=== PATIENT | male | born 1940 | race Caucasian/White ===

== ENCOUNTER 2017-05-25 17:46 | Inpatient (IN) | payer MEDICARE, BC ==
[~2017-05-25] VITALS: Ht 185.4 cm; Wt 81.0 kg
[2017-05-25] VITALS (8 sets, daily range): BP systolic 87–124; BP diastolic 52–68; PULSE 89–170; RESP 15–20; TEMP 98.5–99.2; O2SAT 94–97
[~2017-05-25 17:46] MED LIST: ASPI81TA21 PO; CARD120C4 PO; CENTTAB9 PO; DOXY100T PO; FLON0.053; JANU50TA PO; LIPI20TA PO; MAGN400 PO; POTA80TA PO; PREV30CA36 PO; RIVA20 PO; VIAG100T PO; VITA-13 PO; VITA100017 PO
[2017-05-25] MEDS ORDERED: DILTIAZEM HCL 25 MG/5 ML VIAL ONE (18:33)
[2017-05-25] MEDS ORDERED: SODIUM CHLOR 0.9% 1000 ML INJ 1,000 ML IV ONE (18:35)
[2017-05-25] MEDS ORDERED: PIPERACIL-TAZO 4.5 GM PREMIX 100 ML IV STA (18:35)
[2017-05-25] MEDS ORDERED: SODIUM CHLORIDE 0.9% FLUSH 5 ML FLUSH IV FLUSH PRN (18:45)
[2017-05-25] MEDS ORDERED: DILTIAZEM HCL 25 MG/5 ML VIAL IV PUSH ONE (18:45)
--- NOTE | 2017-05-25 18:45 | PD ---
HPI Chief Complaint: General Weakness Time Seen by Provider: 18:35 Travel History International Travel<30 days: No Contact w/Intl Traveler<30days: No Traveled to known affect area: No History of Present Illness HPI 76-year-old male with history of paroxysmal A. fib, presents to the ER today brought in by his because he has been feeling weak for the last few days, was seen by his physician today and was found to be in A. fib with RVR at a rate of 130 bpm and was sent to the ER for further evaluation. His states that he has been sick for several days and has been having fevers of 102 at home. He has been coughing and having some mild shortness of breath but otherwise has had no other complaints. He states he feels some palpitations but denies any vomiting, diarrhea, abdominal pains, or any other symptoms. Modifying Factors: None Associated Signs & Symptoms: Palpitations, shortness of breath, fevers Risk Factors: History of A. fib PFSH Past Medical History Atrial Fibrillation: Yes Heart Rhythm Problems: Yes Cancer: Yes (SKIN) Cardiovascular Problems: Yes High Cholesterol: Yes Diabetes: Yes Patient Takes Glucophage: No Diminished Hearing: Yes Endocrine: Yes Glaucoma: No Genitourinary: No Hepatitis: No Hiatal Hernia: Yes Hypertension: No Immune Disorder: No Musculoskeletal: No Neurologic: No Reproductive: No Respiratory: No Integumentary: Yes (basel cell carcinoma) Thyroid Disease: No Influenza Vaccination: No Past Surgical History Abdominal Surgery: Yes (LEFT INGUINAL HERNIA REPAIR) Appendectomy: Yes Oral Surgery: Yes (T & A) Other Surgery: Yes (58 skin CA surgery) Social History Alcohol Use: No Tobacco Use: No Substance Use: No Allergies-Medications (Allergen,Severity, Reaction): Coded Allergies: erythromycin base (Unverified Allergy, Severe, GI PROBS, 05/25/17) Reported Meds & Prescriptions Reported Meds & Active Scripts Active Reported Fexofenadine (Fexofenadine HCl) 180 Mg Tab 180 Mg PO DAILY Invokana (Canagliflozin) 100 Mg Tab 100 Mg PO DAILY Take before 1st meal of day. Lansoprazole 30 Mg Capdr 30 Mg PO DAILY Januvia (Sitagliptin Phosphate) 100 Mg Tab 100 Mg PO DAILY Flonase Nasal [place] (Fluticasone Nasal [place]) 50 Mcg/Act [place] 50 Mcg EACH NARE BID Centrum (Multiple Vitamins W/ Minerals) 1 Chew 1 Tab CHEW DAILY Vitamin C ER (Ascorbic Acid) 500 Mg Jessica 1,000 Mg PO DAILY Vitamin D3 (Cholecalciferol) 2,000 Unit Cap 2,000 Units PO DAILY Aspirin Low Dose (Aspirin) 81 Mg Chew 81 Mg CHEW DAILY Atorvastatin (Atorvastatin Calcium) 20 Mg Tab 20 Mg PO HS Review of Systems Except as stated in HPI: all other systems reviewed are Neg Physical Exam Narrative GENERAL: Elderly white male patient currently in mild distress. Awake and oriented 3. SKIN: Focused skin assessment warm/dry. HEAD: Atraumatic. Normocephalic. EYES: Pupils equal and round. No scleral icterus. No injection or drainage. ENT: No nasal bleeding or discharge. Mucous membranes pink and moist. NECK: Trachea midline. No JVD. CARDIOVASCULAR: Fast and irregularly irregular. RESPIRATORY: No accessory muscle use. Clear to auscultation. Breath sounds equal bilaterally. GASTROINTESTINAL: Abdomen soft, non-tender, nondistended. Hepatic and splenic margins not palpable. MUSCULOSKELETAL: No obvious deformities. No clubbing. No cyanosis. No edema. NEUROLOGICAL: Awake and alert. No obvious cranial nerve deficits. Motor grossly within normal limits. Normal speech. PSYCHIATRIC: Appropriate mood and affect; insight and judgment normal. Data Data Last Documented VS Vital Signs Date Time Temp Pulse Resp B/P (MAP) Pulse Ox O2 Delivery O2 Flow Rate FiO2 05/25/17 18:48 99.2 170 18 95/55 (68) 95 Room Air Orders Orders Diltiazem Inj (Cardizem Inj) (05/25/17 18:33) Electrocardiogram (05/25/17 18:35) Complete Blood Count With Diff (05/25/17 18:35) Comprehensive Metabolic Panel (05/25/17 18:35) Prothrombin Time / Inr (Pt) (05/25/17 18:35) Act Partial Throm Time (Ptt) (05/25/17 18:35) Lactic Acid Sepsis Protocol (05/25/17 18:35) Magnesium (Mg) (05/25/17 18:35) Lipase (05/25/17 18:35) Ckmb (Isoenzyme) Profile (05/25/17 18:35) Troponin I (05/25/17 18:35) Urinalysis - C+S If Indicated (05/25/17 18:35) Blood Culture (05/25/17 18:35) Chest, Single Ap (05/25/17 18:35) Blood Glucose (05/25/17 18:35) Ecg Monitoring (05/25/17 18:35) Iv Access Insert/Monitor (05/25/17 18:35) Oximetry (05/25/17 18:35) Oxygen Administration (05/25/17 18:35) Piperacil-Tazo 4.5 Gm Premix (Zosyn 4.5 (05/25/17 18:35) Sodium Chlor 0.9% 1000 Ml Inj (Ns 1000 M (05/25/17 18:35) Diltiazem Inj (Cardizem Inj) (05/25/17 18:45) Diltiazem Inj (Cardizem Inj) (05/25/17 18:45) Sodium Chloride 0.9% Flush (Ns Flush) (05/25/17 18:45) Labs Laboratory Tests Test 05/25/17 18:40 05/25/17 18:45 White Blood Count 8.2 TH/MM3 Red Blood Count 4.89 MIL/MM3 Hemoglobin 13.5 GM/DL Hematocrit 41.7 % Mean Corpuscular Volume 85.3 FL Mean Corpuscular Hemoglobin 27.5 PG Mean Corpuscular Hemoglobin Concent 32.3 % Red Cell Distribution Width 14.5 % Platelet Count 130 TH/MM3 Mean Platelet Volume 8.9 FL Neutrophils (%) (Auto) 82.9 % Lymphocytes (%) (Auto) 7.7 % Monocytes (%) (Auto) 9.1 % Eosinophils (%) (Auto) 0.0 % Basophils (%) (Auto) 0.3 % Neutrophils # (Auto) 6.8 TH/MM3 Lymphocytes # (Auto) 0.6 TH/MM3 Monocytes # (Auto) 0.7 TH/MM3 Eosinophils # (Auto) 0.0 TH/MM3 Basophils # (Auto) 0.0 TH/MM3 CBC Comment DIFF FINAL Differential Comment MDM Medical Decision Making Medical Screen Exam Complete: Yes Emergency Medical Condition: Yes Medical Record Reviewed: Yes Interpretation(s) Initial EKG shows A. fib with RVR at a rate of 130 bpm. Differential Diagnosis Fevers, rapid A. fib: sepsis versus dehydration versus metabolic issues Narrative Course Considering history of fevers as recently as last night, sepsis protocol was initiated and IV antibiotics were given after cultures have been drawn. Patient was given Cardizem bolus 20 mg with resolution of rapid ventricular response and heart rate came down from 132 to 99 bpm. Physician Communication Physician Communication Case is signed out to Dr. Garcia at 7 PM awaiting workup. Planning on admission. Diagnosis Primary Impression: Atrial fibrillation with rapid ventricular response Additional Impression: Fever Admitting Information Admitting Physician Requests: Admit Cassandra Alford MD May 25, 2017 18:45
[2017-05-25] MEDS ORDERED: ASPI81CH37 CHEW (18:58)
[2017-05-25] MEDS ORDERED: LANS30CA PO (18:58)
[2017-05-25] MEDS ORDERED: ATOR20TA15 PO (18:58)
[2017-05-25] MEDS ORDERED: SITA1TAB2 PO (18:58)
[2017-05-25] MEDS ORDERED: VITA2000 PO (18:58)
[2017-05-25] MEDS ORDERED: CANA100T PO (18:58)
[2017-05-25] MEDS ORDERED: FLUT1SPR5 EACH NARE (18:58)
[2017-05-25] MEDS ORDERED: CENTCHW4 CHEW (18:58)
[2017-05-25] MEDS ORDERED: VITA500T83 PO (18:58)
[2017-05-25] MEDS ORDERED: FEXO180T PO (18:58)
[2017-05-25 19:10] LABS: AUTOMATED NEUTROPHIL # 6.8 TH/MM3 (1.8-7.7); BASOPHIL % 0.3 % (0.0-2.0); HEMATOCRIT 41.7 % (39.0-51.0); HEMO FLAGS DIFF FINAL; LYMPH % 7.7 % (9.0-44.0); LYMPHOCYTE # 0.6 TH/MM3 (1.0-4.8); MEAN CELL VOLUME 85.3 FL (80.0-100.0); MEAN CORPUSCULAR HEMOGLOBIN 27.5 PG (27.0-34.0); MEAN CORPUSCULAR HGB CONC 32.3 % (32.0-36.0); MONO % 9.1 % (0.0-8.0); NEUT % 82.9 % (16.0-70.0); PLATELET COUNT 130 TH/MM3 (150-450); RED BLOOD COUNT 4.89 MIL/MM3 (4.50-5.90); RED CELL DISTRIBUTION WIDTH 14.5 % (11.6-17.2); WHITE BLOOD COUNT 8.2 TH/MM3 (4.0-11.0)
--- NOTE | 2017-05-25 19:19 | PD ---
Physical Exam Narrative General: The patient is a well-developed well-nourished male in no acute distress. Head and Neck exam: Head is normocephalic atraumatic. Eyes: EOMI, pupils are equal round and reactive to light. Nose: Midline septum with pink mucous membranes Mouth: Dentition unremarkable. Moist mucus membranes. Posterior oropharynx is not erythematous. No tonsillar hypertrophy. Uvula midline. Airway patent. Neck: No palpable lymphadenopathy. No nuchal rigidity. No thyromegaly. Cardiovascular: Irregularly irregular with a heart rate that ranges between the 90s and 120s without murmurs, gallops, or rubs. He has an intermittent pulse deficit to his extremity on simultaneous auscultation and palpation of his radial artery consistent with atrial fibrillation. Lungs: Clear to auscultation bilaterally. No wheezes, rhonchi, or rales. Abdomen: Soft, without tenderness to palpation in all 4 quadrants of the abdomen. No guarding, rebound, or rigidity. Normal bowel sounds are audible. No tenderness on palpation of McBurney's point.. Extremities: No clubbing, cyanosis, or edema. 2+ pulses in all 4 extremities. No calf tenderness on palpation. Neurologic Exam: Grossly nonfocal. Data Data Last Documented VS Vital Signs Date Time Temp Pulse Resp B/P (MAP) Pulse Ox O2 Delivery O2 Flow Rate FiO2 05/25/17 20:37 90 18 96/52 (67) 94 Room Air 05/25/17 18:48 99.2 Orders Orders Diltiazem Inj (Cardizem Inj) (05/25/17 18:33) Electrocardiogram (05/25/17 18:35) Complete Blood Count With Diff (05/25/17 18:35) Comprehensive Metabolic Panel (05/25/17 18:35) Prothrombin Time / Inr (Pt) (05/25/17 18:35) Act Partial Throm Time (Ptt) (05/25/17 18:35) Lactic Acid Sepsis Protocol (05/25/17 18:35) Magnesium (Mg) (05/25/17 18:35) Lipase (05/25/17 18:35) Ckmb (Isoenzyme) Profile (05/25/17 18:35) Troponin I (05/25/17 18:35) Urinalysis - C+S If Indicated (05/25/17 18:35) Blood Culture (05/25/17 18:35) Chest, Single Ap (05/25/17 18:35) Blood Glucose (05/25/17 18:35) Ecg Monitoring (05/25/17 18:35) Iv Access Insert/Monitor (05/25/17 18:35) Oximetry (05/25/17 18:35) Oxygen Administration (05/25/17 18:35) Piperacil-Tazo 4.5 Gm Premix (Zosyn 4.5 (05/25/17 18:35) Sodium Chlor 0.9% 1000 Ml Inj (Ns 1000 M (05/25/17 18:35) Diltiazem Inj (Cardizem Inj) (05/25/17 18:45) Diltiazem Inj (Cardizem Inj) (05/25/17 18:45) Sodium Chloride 0.9% Flush (Ns Flush) (05/25/17 18:45) CKMB (05/25/17 18:40) CKMB% (05/25/17 18:40) Admit Order (Ed Use Only) (05/25/17 20:44) Labs Laboratory Tests Test 05/25/17 18:40 05/25/17 18:45 05/25/17 20:15 White Blood Count 8.2 TH/MM3 Red Blood Count 4.89 MIL/MM3 Hemoglobin 13.5 GM/DL Hematocrit 41.7 % Mean Corpuscular Volume 85.3 FL Mean Corpuscular Hemoglobin 27.5 PG Mean Corpuscular Hemoglobin Concent 32.3 % Red Cell Distribution Width 14.5 % Platelet Count 130 TH/MM3 Mean Platelet Volume 8.9 FL Neutrophils (%) (Auto) 82.9 % Lymphocytes (%) (Auto) 7.7 % Monocytes (%) (Auto) 9.1 % Eosinophils (%) (Auto) 0.0 % Basophils (%) (Auto) 0.3 % Neutrophils # (Auto) 6.8 TH/MM3 Lymphocytes # (Auto) 0.6 TH/MM3 Monocytes # (Auto) 0.7 TH/MM3 Eosinophils # (Auto) 0.0 TH/MM3 Basophils # (Auto) 0.0 TH/MM3 CBC Comment DIFF FINAL Differential Comment Prothrombin Time 10.1 SEC Prothromb Time International Ratio 0.9 RATIO Activated Partial Thromboplast Time 29.7 SEC Blood Urea Nitrogen 32 MG/DL Creatinine 1.33 MG/DL Random Glucose 234 MG/DL Total Protein 7.1 GM/DL Albumin 3.0 GM/DL Calcium Level 8.7 MG/DL Magnesium Level 2.3 MG/DL Alkaline Phosphatase 107 U/L Aspartate Amino Transf (AST/SGOT) 20 U/L Alanine Aminotransferase (ALT/SGPT) 29 U/L Total Bilirubin 0.6 MG/DL Sodium Level 134 MEQ/L Potassium Level 4.1 MEQ/L Chloride Level 100 MEQ/L Carbon Dioxide Level 20.0 MEQ/L Anion Gap 14 MEQ/L Estimat Glomerular Filtration Rate 52 ML/MIN Total Creatine Kinase 144 U/L Creatine Kinase MB 2.2 NG/ML Troponin I 0.04 NG/ML Lipase 118 U/L Lactic Acid Level 1.5 mmol/L Urine Color YELLOW Urine Turbidity CLEAR Urine pH 5.5 Urine Specific [place] 1.027 Urine Protein 30 mg/dL Urine Glucose (UA) 1000 mg/dL Urine Ketones 80 mg/dL Urine Occult Blood MOD Urine Nitrite POS Urine Bilirubin NEG Urine Urobilinogen LESS THAN 2.0 MG/DL Urine Leukocyte Esterase NEG Urine RBC /hpf Urine WBC 10 /hpf Urine Squamous Epithelial Cells <1 /hpf Urine Bacteria MOD /hpf Microscopic Urinalysis Comment CATH-CULTURE IND MDM Medical Record Reviewed: Yes Supervised Visit with KADI: No Interpretation(s) Last Impressions Chest X-Ray 05/25/171834 Signed Impressions: Service Date/Time: Thursday, May 25, 2017 19:09 - CONCLUSION: 1. No acute findings. River Aguilar MD Narrative Course During the course of the patients emergency department visit, the patients history, examination, and differential diagnosis were reviewed with the patient. The patient had IV access obtained and blood work sent for analysis. The patient was placed on a environmental monitoring specialist with oximetry and blood pressure monitoring. The patient's case was checked out to me by Dr. Hall the conclusion of her shift. Please see her complete history and physical. The patient came in with A. fib with RVR and was given a Cardizem bolus which slowed his heart rate down, followed by Cardizem drip. There was a concern for a possible sepsis focus that was causing his A. fib with RVR as he has had generalized weakness with cough, congestion over the last few days, therefore the patient had blood cultures drawn and was started on antibiotic. The patient does have a history of atrial fibrillation approximately 3 years ago. The patient was seen by , regarding this and had a stress test done at that time. This was a paroxysmal episode and he has not had a recurrence up until this week. The patient reports that he does take a baby aspirin daily. He has not taken it today. The patient was given aspirin 324 mg by mouth 1 by me. The patient was given Zosyn 3.375 g IV. The patients laboratory studies were reviewed and remarkable for a white count of 8.2, hemoglobin 13.5, platelets 1:30 with 82.9 neutrophils, CMP is remarkable for sodium of 134, CO2 20, BUN 32, creatinine 1.33, glucose 234, albumin 3.0, lactic acid is 1.5. PT 10.1, PTT 29.7. Radiology studies were reviewed and remarkable for a chest x-ray that shows no acute cardiopulmonary disease. The patients results were discussed with the patient, including the plan of care. I explained that further testing and/ or monitoring is indicated based on the patients history, examination, and/ or laboratory findings. Therefore, I recommended admission for additional evaluation. The patient expressed understanding and was agreeable with this plan. The patient was admitted to the hospital in guarded condition and sent to a bed under the care of the [facility] hospitalist service. Physician Communication Physician Communication The patient's case will be discussed with the [facility] hospitalist service for admission. The patient's case was discussed with Yaya Mckeon. He did agree to admit the patient for further evaluation and treatment at this time. Diagnosis Primary Impression: Atrial fibrillation with rapid ventricular response Additional Impression: Fever Qualified Codes: R50.9 - Fever, unspecified Admitting Information Admitting Physician Requests: Admit Davida Garcia MD May 25, 2017 19:19
[2017-05-25 19:25] LABS: APTT (PATIENT) 29.7 SEC (24.3-30.1); INTERNATIONAL NORMALIZED RATIO 0.9 RATIO; PROTHROMBIN TIME - PATIENT 10.1 SEC (9.8-11.6)
[2017-05-25 19:26] LABS: ANION GAP 14 MEQ/L (5-15); AST (GOT) 20 U/L (15-37); BLOOD UREA NITROGEN 32 MG/DL (7-18); CHLORIDE 100 MEQ/L (98-107); GLOMERULAR FILTRATION RATE 52 ML/MIN (>89); MAGNESIUM 2.3 MG/DL (1.5-2.5); POTASSIUM 4.1 MEQ/L (3.5-5.1); SODIUM (NA) 134 MEQ/L (136-145)
[2017-05-25 19:27] LABS: ALT (GPT) 29 U/L (12-78)
[2017-05-25] MEDS: DILTIAZEM INJ 125 MG in SODIUM CHLORIDE 0.9% INJ 100 ML IV PRN (19:29)
[2017-05-25 19:31] LABS: ALKALINE PHOSPHATASE 107 U/L (45-117); CREATINE KINASE 144 U/L (39-308); TOTAL BILIRUBIN ADULT 0.6 MG/DL (0.2-1.0)
[2017-05-25 19:43] LABS: CKMB 2.2 NG/ML (0.5-3.6)
--- NOTE | 2017-05-25 19:51 | RADRPT ---
EXAM DATE/TIME: 05/25/2017 19:09 [facility] COMPARISON: No previous studies available for comparison. INDICATIONS : Fever. MEDICAL HISTORY : None. SURGICAL HISTORY : None. ENCOUNTER: Initial ACUITY: 1 day PAIN SCORE: 5/10 LOCATION: Bilateral chest FINDINGS: A single view of the chest demonstrates the lungs to be symmetrically aerated without evidence of mas s, infiltrate or effusion. The cardiomediastinal contours are unremarkable except tortuous aorta. O sseous structures are intact. CONCLUSION: 1. No acute findings. River Aguilar MD on May 25, 2017 at 19:48 Board Certified Radiologist. This report was verified electronically.
[2017-05-25 20:51] LABS: BACTERIA, URINE MOD /hpf; BLOOD, URINE MOD (NEG); COMMENT (UR) CATH-CULTURE IND; CULTURE IF INDICATED CATH CULTURE IND; GLUCOSE,URINE 1000 mg/dL (NEG); KETONE, URINE 80 mg/dL (NEG); NITRITE,URINE POS (NEG); PH, URINE 5.5 (5.0-8.5); SQUAMOUS EPITHELIAL CELL URINE <1 /hpf (0-5); URINE COLOR YELLOW (YELLW/STRAW)
[2017-05-25] MEDS ORDERED: LACTULOSE SYRUP 20 GM/30 ML CUP PO PRN (22:30)
[2017-05-25] MEDS ORDERED: SENNOSIDES 8.6 MG TAB PO PRN (22:30)
[2017-05-25] MEDS ORDERED: ONDANSETRON HCL 4 MG/2 ML VIAL IVP PRN (22:30)
[2017-05-25] MEDS ORDERED: ACETAMINOPHEN 325 MG TAB PO PRN ×2 (22:30)
[2017-05-25] MEDS: HEPARIN SODIUM - SQ 10,000 UNITS/ML VIAL SQ SCH (23:06)
[2017-05-25] MEDS: SODIUM CHLOR 0.9% 1000 ML INJ 1,000 ML IV SCH (23:06)
[2017-05-25] MEDS: cefTRIAXone INJ 1,000 MG in SODIUM CHLORIDE 0.9% INJ 100 ML IV SCH (23:06)
[2017-05-26] VITALS (22 sets, daily range): BP systolic 91–106; BP diastolic 55–68; PULSE 77–107; RESP 16–20; TEMP 96.7–98.6; O2SAT 93–98
[2017-05-26 07:56] LABS: BICARBONATE 15.1 MEQ/L (21.0-32.0)
[2017-05-26 08:01] LABS: POTASSIUM 4.1 MEQ/L (3.5-5.1)
[2017-05-26 08:55] LABS: HEMATOCRIT 37.7 % (39.0-51.0); MEAN CELL VOLUME 85.9 FL (80.0-100.0); MEAN CORPUSCULAR HEMOGLOBIN 27.5 PG (27.0-34.0); PLATELET COUNT 119 TH/MM3 (150-450); RED BLOOD COUNT 4.39 MIL/MM3 (4.50-5.90); RED CELL DISTRIBUTION WIDTH 14.4 % (11.6-17.2); REVIEW FLAG FINAL; WHITE BLOOD COUNT 6.3 TH/MM3 (4.0-11.0)
[2017-05-26] MEDS: SODIUM CHLORIDE 0.9% FLUSH 10 ML FLUSH IV FLUSH SCH ×2 (09:00→21:49)
--- NOTE | 2017-05-26 09:41 | MH ---
cc: CHAVA MERRITT DATE OF ADMISSION: 05/25/2017 DATE OF : 1940 CHIEF COMPLAINT Generalized weakness and malaise. TRAVEL IN THE LAST 30 DAYS None. HISTORY OF PRESENT ILLNESS This is a 76-year-old elderly white male who was brought to the emergency room per his for generalized weakness and malaise. She states according to the record that he has felt bad for several days, has had a decreased appetite and has been having fevers at 102 range at home. The patient does note that he was coughing approximately a week ago, coughing up mucus, but it did not have any color to it. He denies any current coughing. He does note some irregular feeling to his heart, but denies any nausea, vomiting, headaches, diarrhea or constipation. The patient does note some generalized weakness in his legs. His conversation in symptoms are random. At times he will state that he does feel something and then he will start talking about something that happened three years ago. He is a fair to poor historian. 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 The patient denies any history of atrial fibrillation but it is noted in the record and he is currently in atrial fibrillation rhythm with rapid ventricular response and heart rate less than 110. PAST MEDICAL HISTORY According to the record: 1. Atrial fibrillation. 2. Skin cancers. 3. Cardiovascular disease. 4. Hyperlipidemia. 5. Diabetes. 6. Hard of hearing. 7. Hiatal hernia. 8. GERD. 9. Probable psoriasis. PAST SURGICAL HISTORY 1. Left inguinal hernia repair. 2. Appendectomy. 3. Tonsillectomy and adenoidectomy. 4. ___ skin cancer surgeries. ALLERGIES ERYTHROMYCIN-BASED MEDICATIONS. MEDICATIONS Reported medications: 1. Januvia. 2. Flonase. 3. Vitamins. 4. Aspirin, low dose. 5. Atorvastatin. 6. Invokana. 7. Fexofenadine. 8. Lansoprazole. SOCIAL HISTORY The patient is , currently lives with his . Denies any alcohol, tobacco or illicit drug use. REVIEW OF SYSTEMS Symptoms mentioned in the HPI which include generalized weakness and malaise, coughing spell approximately one week ago, generalized weakness in his lower extremities, some nausea, vomiting and diarrhea, positive for palpitations. Otherwise systems are negative or unremarkable if not mentioned already. PHYSICAL EXAMINATION VITAL SIGNS: Temperature 99.2 and 98.5. Pulse rate as low as 92 and as high as 107. Blood pressure 100/55. O2 sat 93-98, currently on room air. GENERAL: An elderly white male who looks older than his stated age, resting in the bed. He is awake and conversational. SKIN: Feng with possible psoriasis and scabs which are not bleeding. This is facial and upper and lower extremities. Otherwise warm and dry. HEENT: Atraumatic, normocephalic. PERRLA at 2 mm. Mucous membranes are slightly pale and dry. NECK: Supple. CARDIOVASCULAR: S1, S2, irregular rate and rhythm, tachycardic at 103-107. Possible soft systolic murmur. No rubs or gallops. No lower extremity edema. Pulses are intact. PULMONARY: Lungs have low volumes but essentially clear anteriorly and posteriorly with no wheezes, rales or rhonchi. ABDOMEN: Flat, soft, nontender, nondistended. Active bowel sounds in all four quadrants. EXTREMITIES: He can move his extremities with purpose. He can overcome resistance for a brief period of time in his lower extremities. 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 NEUROLOGIC: He is awake. His conversation is random. He is a fair historian to some information. Tongue is midline. Speech is clear. PSYCHIATRIC: Mood and affect are appropriate for his general condition. LABORATORY WBC count 8.2, RBC 4.89, hemoglobin 13.5, hematocrit 41.7, platelet count 130, neutrophils count 82.9, lymphocyte count 7.7, monocyte count 9.1. INR 0.9. Sodium 139, potassium 4.1, chloride 109, carbon dioxide 15.1 (was 20 on admission), anion gap 15, BUN 22, creatinine 0.77 (elevated on admission at 1.33), GFR 98, random glucose initially on admission 234, now 136, lactic acid 1.5, calcium 8.2. Troponins are 0.04, 0.03 x2. Albumin 3. Urine is yellow, clear, pH 5.5, specific gravity 1.027, protein 30, glucose 1000, ketones 80, moderate occult blood, positive nitrites, negative leukocyte esterase. Cath culture is indicated. IMAGING Chest x-ray has no acute findings. ASSESSMENT 1. Atrial fibrillation, possible new onset, with rapid ventricular response. 2. Fever of unknown origin. 3. Acute kidney injury. 4. Diabetes type 2 with uncontrolled blood sugar. 5. Urinary tract infection. 6. Mild positive troponins. PLAN 1. Admit inpatient status. 2. Monitor vital signs q.4h. and as warranted. 3. He will be on bedrest for now. 4. Heart-healthy diet. 5. Will monitor his intake and output. 6. Place him on aspirin. 7. Will consult cardiology for their expert opinion. 8. Place him on heparin subcu. 9. PRN meds for pain, nausea, bowel regimen. 10. Urine and blood cultures are pending. 11. Will place him on Rocephin IV for possible urinary tract infection. 12. He has been placed on a low-dose Cardizem drip to titrate for his heart rate. We are attempting to maintain him at less than 100. He is currently running between 97 and 107. 13. A 2-D echo has been ordered. 14. Will continue to monitor his symptoms and his course of treatment will be evaluated with treatment per his needs. 15. The patient is full code, full aggressive care. 16. We will follow. Dictated by: IJEOMA Folres Chava Merritt MD JP/LACHELLE /8:47 AM /9:10 AM pt seen and examined this afternoon with at bedside in detail chart was reviewed plan of care adelso valderrama and karely hurt will follow MTDD
[2017-05-26] MEDS: ASPIRIN 325 MG TAB PO SCH (10:47)
[2017-05-26] MEDS: HEPARIN SODIUM - SQ 10,000 UNITS/ML VIAL SQ SCH (10:48)
[2017-05-26] MEDS: SODIUM CHLOR 0.9% 1000 ML INJ 1,000 ML IV SCH ×2 (12:46→19:00)
--- NOTE | 2017-05-26 14:34 | EKG ---
Date Performed: 05/26/2017 Time Performed: 00:37:21 PTAGE: 76 years EKG: ATRIAL FIBRILLATION WITH RAPID VENTRICULAR RESPONSE MARKED LEFT AXIS DEVIATION POSSIBLE ANT ERIOR MYOCARDIAL INFARCTION ABNORMAL ECG Compared to prior tracing no significant change PREVIOUS TRACING : 05/25/2017 18.52 DOCTOR: Sreedhar Garcia Interpretating Date/Time 05/26/2017 14:31:18
[2017-05-26] MEDS: DILTIAZEM INJ 125 MG in SODIUM CHLORIDE 0.9% INJ 100 ML IV PRN (15:22)
--- NOTE | 2017-05-26 17:17 | PD.CONS ---
HPI Consult Requested By Primary Care Physician Manoj Davis MD History of Present Illness 76 y/o M admitted with generalized weakness, malaise, decreased appetite, fevers of 102 and new onset atrial fibrillation. Denies any nausea, vomiting, headaches, diarrhea or constipation. The patient denies any history of atrial fibrillation. Cardiology consulted fo afib evaluation and management. Review of Systems ROS Limitations: Poor Historian Consitutional: DENIES: Fatigue, Fever, Chills, Weight gain, Weight loss Eyes: DENIES: Amaurosis Fugax, Change in vision HEENT: DENIES: Lightheadedness, Change in hearing Respiratory: DENIES: See HPI, Cough, Snoring, Shortness of breath, Wheezing, Sputum production Cardiovascular: DENIES: See HPI, Chest pain, Palpitations, Syncope, Tachycardia Gastrointestinal: DENIES: Nausea, Vomiting, Change in bowel habits, Reflux, Bloody stools, Melena Genitourinary: DENIES: Urinary incontinence, Difficulty voiding Integumentary: DENIES: Rash Neurologic: DENIES: Tingling or numbness, Memory problems, Poor Balance, Stroke symptoms Musculoskeletal: DENIES: Joint pain, Muscle pain, Limited range of motion, Back pain Psychiatric: DENIES: Anxiety, Depression, Sleep disturbances Hematologic: DENIES: Bruising tendencies, Bleeding tendencies Endocrine: DENIES: Weight gain, Weight loss, Thyroid disease Past Family Social History Allergies: Coded Allergies: erythromycin base (Unverified Allergy, Severe, GI PROBS, 05/25/17) Past Medical History 1. Atrial fibrillation. 2. Skin cancers. 3. Cardiovascular disease. 4. Hyperlipidemia. 5. Diabetes. 6. Hard of hearing. 7. Hiatal hernia. 8. GERD. 9. Probable psoriasis. Past Surgical History 1. Left inguinal hernia repair. 2. Appendectomy. 3. Tonsillectomy and adenoidectomy. 4. ___ skin cancer surgeries. Reported Medications Reported Meds & Active Scripts Active Reported Fexofenadine (Fexofenadine HCl) 180 Mg Tab 180 Mg PO DAILY Invokana (Canagliflozin) 100 Mg Tab 100 Mg PO DAILY Take before 1st meal of day. Lansoprazole 30 Mg Capdr 30 Mg PO DAILY Januvia (Sitagliptin Phosphate) 100 Mg Tab 100 Mg PO DAILY Flonase Nasal [place] (Fluticasone Nasal [place]) 50 Mcg/Act [place] 50 Mcg EACH NARE BID Centrum (Multiple Vitamins W/ Minerals) 1 Chew 1 Tab CHEW DAILY Vitamin C ER (Ascorbic Acid) 500 Mg Jessica 1,000 Mg PO DAILY Vitamin D3 (Cholecalciferol) 2,000 Unit Cap 2,000 Units PO DAILY Aspirin Low Dose (Aspirin) 81 Mg Chew 81 Mg CHEW DAILY Atorvastatin (Atorvastatin Calcium) 20 Mg Tab 20 Mg PO HS Active Ordered Medications Current Medications Medications (Trade) Dose Ordered Sig/Zafar Route Start Time Stop Time Status Last Admin Diltiazem HCl 125 mg/Sodium Chloride 125 ml @ 5 mls/hr TITRATE PRN IV 05/25/17 18:45 05/26/17 15:22 (NS Flush) 2 ml UNSCH PRN IV FLUSH 05/25/17 18:45 (NS Flush) 2 ml BID IV FLUSH 05/26/17 09:00 (Aspirin) 325 mg DAILY PO 05/26/17 09:00 05/26/17 10:47 (Heparin Inj) 5,000 units Q12H SQ 05/25/17 23:00 05/26/17 10:48 Sodium Chloride 1,000 ml @ 100 mls/hr Q10H IV 05/25/17 23:00 05/26/17 12:46 (Tylenol) 650 mg Q4H PRN PO 05/25/17 22:30 (Zofran Inj) 4 mg Q6H PRN IVP 05/25/17 22:30 (Tylenol) 650 mg Q6H PRN PO 05/25/17 22:30 (Senokot) 17.2 mg Q12H PRN PO 05/25/17 22:30 (Lactulose Liq) 30 ml DAILY PRN PO 05/25/17 22:30 Ceftriaxone Sodium 1000 mg/ Sodium Chloride 100 ml @ 200 mls/hr Q24H IV 05/25/17 23:00 05/25/17 23:06 (Cardizem) 30 mg Q6H PO 05/26/17 17:00 (Sodium Bicarbonate) 650 mg Q8HR PO 05/26/17 17:00 UNV Social History The patient is , currently lives with his . Denies any alcohol, tobacco or illicit drug use. Physical Exam Vital Signs Vital Signs Date Time Temp Pulse Resp B/P (MAP) Pulse Ox O2 Delivery O2 Flow Rate FiO2 9/6/17 15:22 88 92/55 05/26/17 15:16 96.7 88 16 92/55 (67) 95 05/26/17 14:00 86 05/26/17 13:00 96 05/26/17 12:00 94 05/26/17 11:00 97.7 102 16 96/57 (70) 93 05/26/17 11:00 107 05/26/17 10:00 96 05/26/17 09:24 05/26/17 09:19 98.6 105 16 91/61 (71) 95 05/26/17 07:27 93 21 05/26/17 06:13 107 19 100/55 (70) 98 Room Air 05/26/17 03:49 105 19 102/65 (77) 98 Room Air 05/26/17 03:27 96 21 05/26/17 01:39 92 18 106/60 (75) 98 Room Air 05/26/17 00:42 103 19 95/56 (69) 98 Room Air 05/25/17 22:06 111 19 91/59 (70) 94 Room Air 05/25/17 20:37 90 18 96/52 (67) 94 Room Air 05/25/17 19:48 104 17 88/57 (67) 96 Room Air 05/25/17 19:30 110 20 88/55 (66) 95 Room Air 05/25/17 19:29 104 87/54 05/25/17 19:28 104 20 87/54 (65) 96 Room Air 05/25/17 18:48 99.2 170 18 95/55 (68) 95 Room Air 05/25/17 18:47 18 95 Room Air 05/25/17 18:46 95 Room Air 05/25/17 18:46 20 95 Room Air 05/25/17 17:49 98.5 89 15 124/68 (86) 97 Laboratory Laboratory Tests Test 05/25/17 18:40 05/25/17 18:45 05/25/17 20:15 05/26/17 00:40 White Blood Count 8.2 Red Blood Count 4.89 Hemoglobin 13.5 Hematocrit 41.7 Mean Corpuscular Volume 85.3 Mean Corpuscular Hemoglobin 27.5 Mean Corpuscular Hemoglobin Concent 32.3 Red Cell Distribution Width 14.5 Platelet Count 130 Mean Platelet Volume 8.9 Neutrophils (%) (Auto) 82.9 Lymphocytes (%) (Auto) 7.7 Monocytes (%) (Auto) 9.1 Eosinophils (%) (Auto) 0.0 Basophils (%) (Auto) 0.3 Neutrophils # (Auto) 6.8 Lymphocytes # (Auto) 0.6 Monocytes # (Auto) 0.7 Eosinophils # (Auto) 0.0 Basophils # (Auto) 0.0 CBC Comment DIFF FINAL Differential Comment Prothrombin Time 10.1 Prothromb Time International Ratio 0.9 Activated Partial Thromboplast Time 29.7 Blood Urea Nitrogen 32 Creatinine 1.33 Random Glucose 234 Total Protein 7.1 Albumin 3.0 Calcium Level 8.7 Magnesium Level 2.3 Alkaline Phosphatase 107 Aspartate Amino Transf (AST/SGOT) 20 Alanine Aminotransferase (ALT/SGPT) 29 Total Bilirubin 0.6 Sodium Level 134 Potassium Level 4.1 Chloride Level 100 Carbon Dioxide Level 20.0 Anion Gap 14 Estimat Glomerular Filtration Rate 52 Total Creatine Kinase 144 Creatine Kinase MB 2.2 Troponin I 0.04 0.03 Lipase 118 Lactic Acid Level 1.5 Urine Color YELLOW Urine Turbidity CLEAR Urine pH 5.5 Urine Specific [place] 1.027 Urine Protein 30 Urine Glucose (UA) 1000 Urine Ketones 80 Urine Occult Blood MOD Urine Nitrite POS Urine Bilirubin NEG Urine Urobilinogen LESS THAN 2.0 Urine Leukocyte Esterase NEG Urine RBC Urine WBC 10 Urine Squamous Epithelial Cells <1 Urine Bacteria MOD Microscopic Urinalysis Comment CATH-CULTURE IND Test 05/26/17 06:45 05/26/17 08:21 Blood Urea Nitrogen 22 Creatinine 0.77 Random Glucose 136 Calcium Level 8.2 Sodium Level 139 Potassium Level 4.1 Chloride Level 109 Carbon Dioxide Level 15.1 Anion Gap 15 Estimat Glomerular Filtration Rate 98 Troponin I 0.03 White Blood Count 6.3 Red Blood Count 4.39 Hemoglobin 12.0 Hematocrit 37.7 Mean Corpuscular Volume 85.9 Mean Corpuscular Hemoglobin 27.5 Mean Corpuscular Hemoglobin Concent 32.0 Red Cell Distribution Width 14.4 Platelet Count 119 Mean Platelet Volume 8.8 Date/Time Source Procedure Growth Status 05/25/17 18:45 Blood Peripheral Aerobic Blood Culture - Preliminary NO GROWTH IN 1 DAY Resulted 05/25/17 18:45 Blood Peripheral Anaerobic Blood Culture - Preliminary NO GROWTH IN 1 DAY Resulted 05/25/17 20:15 Urine Catheterized Urine Urine Culture - Preliminary Gram Negative Aaron Resulted Result Diagram: 05/26/17 0821 05/26/17 0645 Imaging Last Impressions Chest X-Ray 05/25/17 1835 Signed Impressions: Service Date/Time: Thursday, May 25, 2017 19:09 - CONCLUSION: 1. No acute findings. River Aguilar MD Assessment and Plan Problem List: (1) Atrial fibrillation with rapid ventricular response ICD Codes: I48.91 - Unspecified atrial fibrillation Status: Acute Plan: New onset afib with RVR in the setting of UTI. Please tx underlying infection and rate control afib with BB as tolerated. CE x3 unremarkable no ischemic work up recommended at this time. Thank you for the opportunity to participate in the care of this patient. Will be available on a PRN basis for any questions of concerns. (2) Fever ICD Codes: R50.9 - Fever, unspecified Status: Acute Problem Qualifiers (1) Fever: Qualified Codes: R50.9 - Fever, unspecified Harvey Stoddard MD May 26, 2017 17:17
--- NOTE | 2017-05-26 17:17 | EKG ---
Date Performed: 05/26/2017 Time Performed: 06:40:25 PTAGE: 76 years EKG: ATRIAL FIBRILLATION WITH RAPID VENTRICULAR RESPONSE MARKED LEFT AXIS DEVIATION LEFT ANTERIO R FASICULAR BLOCK NONSPECIFIC T-WAVE ABNORMALITY Compared to prior tracing no significant change ABNO RMAL ECG PREVIOUS TRACING : 05/26/2017 00.37 DOCTOR: Sreedhar Garcia Interpretating Date/Time 05/26/2017 17:16:23
--- NOTE | 2017-05-26 17:17 | EKG ---
Date Performed: 05/25/2017 Time Performed: 18:52:42 PTAGE: 76 years EKG: ATRIAL FIBRILLATION LEFT AXIS DEVIATION LEFT ANTERIOR FASICULAR BLOCK Compared to previous tracing, atrial fibrillation is new ABNORMAL ECG PREVIOUS TRACING : 10/15/2013 07.43 DOCTOR: Sreedhar Garcia Interpretating Date/Time 05/26/2017 17:16:03
[2017-05-26] MEDS: SODIUM BICARBONATE 650 MG TAB PO SCH ×2 (18:16→21:49)
[2017-05-26] MEDS: DILTIAZEM HCL 30 MG TAB PO SCH ×2 (18:16→23:24)
[2017-05-26] MEDS: DABIGATRAN ETEXILATE 150 MG CAP PO SCH (21:49)
[2017-05-26] MEDS: cefTRIAXone INJ 1,000 MG in SODIUM CHLORIDE 0.9% INJ 100 ML IV SCH (23:24)
[2017-05-27] VITALS (13 sets, daily range): BP systolic 103–126; BP diastolic 67–79; PULSE 79–102; RESP 16–20; TEMP 97.9–98.2; O2SAT 94–96
[2017-05-27] MEDS: SODIUM CHLOR 0.9% 1000 ML INJ 1,000 ML IV SCH ×2 (05:00→11:13)
[2017-05-27] MEDS: DILTIAZEM HCL 30 MG TAB PO SCH ×2 (06:03→10:57)
[2017-05-27] MEDS: SODIUM BICARBONATE 650 MG TAB PO SCH (06:03)
[2017-05-27] MEDS: ASPIRIN 325 MG TAB PO SCH (08:28)
[2017-05-27] MEDS: DABIGATRAN ETEXILATE 150 MG CAP PO SCH (08:28)
[2017-05-27] MEDS: SODIUM CHLORIDE 0.9% FLUSH 10 ML FLUSH IV FLUSH SCH (08:28)
[2017-05-27 09:01] LABS: HEMATOCRIT 39.4 % (39.0-51.0); MEAN CELL VOLUME 85.6 FL (80.0-100.0); MEAN CORPUSCULAR HEMOGLOBIN 28.2 PG (27.0-34.0); MEAN CORPUSCULAR HGB CONC 32.9 % (32.0-36.0); PLATELET COUNT 125 TH/MM3 (150-450); RED CELL DISTRIBUTION WIDTH 14.8 % (11.6-17.2); REVIEW FLAG FINAL; WHITE BLOOD COUNT 4.9 TH/MM3 (4.0-11.0)
[2017-05-27 09:22] LABS: BICARBONATE 17.3 MEQ/L (21.0-32.0); POTASSIUM 3.3 MEQ/L (3.5-5.1)
--- NOTE | 2017-05-27 15:14 | PD.AMA ---
Against Medical Advice Note Discharge Disposition: Against Medical Advice Pt Condition on Discharge: Stable AMA Statement Patient Ander Esquivel has decided to leave the hospital against medical advice. This patient has the capacity to refuse care and understands the risks of leaving, including permanent disability and/or , and has had an opportunity to ask questions about his condition. The patient has been informed that he may return for care at any time, and follow up has been arranged/advised. Bianca Barrera May 27, 2017 15:14
== END 2017-05-27 12:03 | disposition left against medical advice (07) | DRG 309 ==
LOC: NEPE 17:46 → NEDA 20:46 → NEDH 05-26 00:46 → HCIS 05-26 08:52
PROVIDERS: ADMIT Specialist; ATTEND Specialist
DX: I48.0 Paroxysmal atrial fibrillation (principal); N17.9 Acute kidney failure, unspecified; E11.65 Type 2 diabetes mellitus with hyperglycemia; N39.0 Urinary tract infection, site not specified; H91.90 Unspecified hearing loss, unspecified ear; K44.9 Diaphragmatic hernia without obstruction or gangrene; E78.00 Pure hypercholesterolemia, unspecified; Z85.828 Personal history of other malignant neoplasm of skin; Z79.82 Long term (current) use of aspirin; K21.9 Gastro-esophageal reflux disease without esophagitis; L40.9 Psoriasis, unspecified; R50.9 Fever, unspecified
CPT/HCPCS: 71010; 80048; 80053; 81001; 82550; 82552; 83605; 83690; 83735; 84484; 85025; 85027; 85610; 85730; 87040; 87077; 87086; 87186; 87205; 93005; 96361; 96365; 96368; 96375; J0696; J1644; J2543; J7030